=== PATIENT | female | born 1960 | race Caucasian/White ===

== ENCOUNTER 2017-01-14 17:34 | Emergency (ER) | payer BC ==
[2017-01-14 18:31] VITALS: BP 130/72
--- NOTE | 2017-01-14 18:42 | UC ---
Dental HPI - HPI Summary HPI Summary: Broke a tooth 9 days ago and the filling fell out. Now more swelling in the face. - History of Current Complaint Chief Complaint: Jonathan Stated Complaint: DENTAL Hx Obtained From: Patient ?: No Onset/Duration: Sudden Onset, Worse Since - today with more swelling along the jaw and pain in the right side of the face. - Allergies/Home Medications Allergies/Adverse Reactions: Allergies Allergy/AdvReac Type Severity Reaction Status Date / Time Morphine Allergy Nausea And Verified 04/18/16 16:32 Vomiting PMH/Surg Hx/FS Hx/Imm Hx Cardiovascular History: Deep Vein Thrombosis - Surgical History Surgical History: Yes Surgery Procedure, Year, and Place: DECOMPRESSION OF ARTERIAL CLOT LLE - Family History Known Family History: Positive: Cardiac Disease - father -CAD, Hypertension - mother Negative: Diabetes - Social History Occupation: Employed Full-time Lives: Alone Alcohol Use: Occasionally Substance Use Type: None Smoking Status (MU): Former Smoker Type: Cigarettes Amount Used/How Often: 1/2 - 3/4 PPD Length of Time of Smoking/Using Tobacco: 32 YRS When Did the Patient Quit Smoking/Using Tobacco: 01/08/17 Review of Systems Constitutional: Chills ENT: Dental Pain All Other Systems Reviewed And Are Negative: Yes Physical Exam Triage Information Reviewed: Yes Appearance: Well-Appearing, No Pain Distress, Well-Nourished Vital Signs: Initial Vital Signs Temp 98.4 F 01/14/17 18:22 Pulse 89 01/14/17 18:22 Resp 14 01/14/17 18:22 BP 130/72 01/14/17 18:22 Pulse Ox 99 01/14/17 18:22 Vital Signs Reviewed: Yes Eyes: Positive: Conjunctiva Inflamed ENT: Positive: Pharynx normal, TMs normal Dental: Positive: Abscess @ - # Neck exam: Normal Respiratory: Positive: Decreased breath sounds, Wheezing - mild expiratory wheeze Cardiovascular Exam: Normal Musculoskeletal Exam: Normal Neurological Exam: Normal Psychological Exam: Normal Skin Exam: Normal Dental Complaint Course/Dx - Differential Dx/Diagnosis Differential Diagnosis/Dx: Dental Abscess, Dental Caries, Fractured Tooth, Peridontic Disease Provider Diagnoses: Dental abscess Discharge - Discharge Plan Condition: Stable Disposition: HOME Prescriptions: Amoxicillin/Clavulanate TAB* [Augmentin TAB 875*] 875 mg PO BID #20 tab Patient Education Materials: Dental Abscess (ED), Amoxicillin/Clavulanate Potassium (By mouth)
[2017-01-14] MEDS ORDERED: Amoxicillin/Clavulanate TAB* 875 MG PO ONE (18:43)
== END 2017-01-14 19:04 | disposition home or self-care (01) ==
LOC: UCCORT 17:34
DX: K04.7 Periapical abscess without sinus (principal)
CPT/HCPCS: 99212; A9270-GY; G0463

== ENCOUNTER 2017-07-10 16:29 | Emergency (ER) | payer BC ==
[2017-07-10 17:57] VITALS: BP 118/75
--- NOTE | 2017-07-10 18:19 | ED ---
Respiratory - HPI Summary HPI Summary: 56 yr old female with the complaint of fatigue, myalgias, coughing, vomiting, dizziness. She has had symptoms since 07/05. She has had lung surgery for Lung CA. - History of Current Complaint Chief Complaint: UCGeneralIllness Stated Complaint: FLU SYMPTOMS Time Seen by Provider: 07/10/17 18:10 Pain Intensity: 0 - Allergy/Home Medications Allergies/Adverse Reactions: Allergies Allergy/AdvReac Type Severity Reaction Status Date / Time morphine AdvReac GI Verified 07/10/17 17:57 Home Medications: Home Medications Cyanocobalamin INJ * [Vitamin B12 INJ *] 1,000 mcg IM MONTHLY 07/10/17 [History Confirmed 07/10/17] Ergocalciferol (Vitamin D2) [Vitamin D2] 50,000 i.u. WEEKLY 07/10/17 [History Confirmed 07/10/17] Esomeprazole(NF) [NexIUM(NF)] 40 mg PO BEDTIME 07/10/17 [History Confirmed 07/10] Folic Acid [ Folic Acid] 1 mg PO DAILY 07/10/17 [History Confirmed 07/10/17] PMH/Surg Hx/FS Hx/Imm Hx Endocrine/Hematology History: Denies: Hx Diabetes Cardiovascular History: Reports: Other Cardiovascular Problems/Disorders - [place] 2001 Denies: Hx Hypertension Respiratory History: Denies: Hx Asthma, Hx Chronic Obstructive Pulmonary Disease (COPD) Comment Only: Other Respiratory Problems/Disorders - ARTERIAL CLOT / COMPARTMENT SYNDROME/ - Cancer History Cancer Type, Location and Year: left lower leg. lung cancer-s/p surgery Hx Chemotherapy: No Hx Radiation Therapy: No - Surgical History Surgery Procedure, Year, and Place: DECOMPRESSION OF ARTERIAL CLOT LLE. 03/2017 - removed right upper lung, resected righ mid lung Infectious Disease History: No Infectious Disease History: Denies: Traveled Outside the [place] in Last 30 Days - Family History Known Family History: Positive: Cardiac Disease - father -CAD, Hypertension - mother Negative: Diabetes - Social History Alcohol Use: None Substance Use Type: Reports: None Hx Tobacco Use: Yes Smoking Status (MU): Former Smoker Type: Cigarettes Amount Used/How Often: 1/2 - 3/4 PPD Length of Time of Smoking/Using Tobacco: 32 YRS Review of Systems Positive: Chills, Fatigue Positive: Cough Positive: Myalgia All Other Systems Reviewed And Are Negative: Yes Physical Exam Triage Information Reviewed: Yes Vital Signs On Initial Exam: Initial Vitals Temp Pulse BP Pulse Ox 97.8 F 87 118/75 98 07/10/17 17:48 07/10/17 17:48 07/10/17 17:48 07/10/17 17:48 Vital Signs Reviewed: Yes Appearance: Positive: Well-Appearing, No Pain Distress Skin: Positive: Warm, Skin Color Reflects Adequate Perfusion Head/Face: Positive: Normal Head/Face Inspection Eyes: Positive: EOMI ENT: Positive: Pharynx normal, TM dull - left, TM red - left Neck: Positive: Supple, Nontender Respiratory/Lung Sounds: Positive: Clear to Auscultation, Breath Sounds Present Cardiovascular: Positive: RRR. Negative: Murmur Abdomen Description: Positive: Nontender Musculoskeletal: Positive: Strength/ROM Intact Neurological: Positive: Sensory/Motor Intact, Alert, Oriented to Person Place, Time, CN Intact II-III Psychiatric: Positive: Normal - Brandon Coma Scale Best Eye Response: 4 - Spontaneous Best Motor Response: 6 - Obeys Commands Best Verbal Response: 5 - Oriented Coma Scale Total: 15 Diagnostics - Vital Signs Vital Signs Temp Pulse BP Pulse Ox 07/10/17 17:48 97.8 F 87 118/75 98 - Laboratory Lab Statement: Any lab studies that have been ordered have been reviewed, and results considered in the medical decision making process. Disposition - Course Course Of Treatment: 56 yr old with OM on exam and cold and flu symptoms. Xray neg for acute disease. Rx with augmentin - Diagnoses Provider Diagnoses: Otitis media, Upper respiratory infection Discharge - Discharge Plan Condition: Good Disposition: HOME Prescriptions: Amoxicillin/Clavulanate TAB* [Augmentin TAB 875*] 875 mg PO BID #20 tab Patient Education Materials: Ear Infection (ED), Upper Respiratory Infection ( ED) Forms: *Work Release Referrals: Glory Howard PA [Primary Care Provider] - 2 Days
--- NOTE | 2017-07-10 19:19 | RAD ---
INDICATION: Chest pain. Productive cough. Chills. Vomiting. Near-syncope. History of tobacco use. History of RIGHT lung cancer with RIGHT upper lobectomy. COMPARISON: February 08, 2014 TECHNIQUE: Dual energy PA and routine lateral views of the chest were obtained. REPORT: Postsurgical change of RIGHT upper lobectomy with mild RIGHT hemithorax volume loss and rightward mediastinal shift. Associated postsurgical deformity of the superior peripheral RIGHT thorax. No focal pulmonary lesion, alveolar consolidation, pleural effusion, pneumothorax. Negative for cardiomegaly. Unremarkable central pulmonary vasculature and mediastinal contours. No suspicious osseous lesions evident. IMPRESSION: No acute cardiopulmonary process or radiographic evidence for recurrent tumor.
== END 2017-07-10 19:39 | disposition home or self-care (01) ==
LOC: UCCORT 16:29
DX: H66.92 Otitis media, unspecified, left ear (principal); J06.9 Acute upper respiratory infection, unspecified; Z87.891 Personal history of nicotine dependence
CPT/HCPCS: 71046; 87502; 99212; G0463